=== PATIENT | male | born 1945 ===

== ENCOUNTER 2019-02-16 19:11 | Emergency (ER) | payer OTHER ==
[~2019-02-16] VITALS: Ht 162.6 cm; Wt 81.6 kg
[~2019-02-16 19:11] MED LIST: CELEBREX50 MG; METFORMIN HCL750 MG; SIMVASTATIN5 MG
== END 2019-02-16 23:21 | disposition home or self-care (01) ==
LOC: ER 19:11
DX: K62.5 Hemorrhage of anus and rectum (principal)